=== PATIENT | male | born 1970 | race Two or more races ===

== ENCOUNTER 2017-10-04 14:04 | Emergency (ER) | payer OTHER ==
[~2017-10-04] VITALS: Ht 167.6 cm; Wt 113.4 kg
[~2017-10-04 14:04] MED LIST: ULTRACET PO
[2017-10-04] MEDS ORDERED: METFORMIN HCL500 MG PO (15:10)
== END 2017-10-04 16:12 | disposition home or self-care (01) ==
LOC: ER 14:04
DX: S90.861A Insect bite (nonvenomous), right foot, initial encounter (principal); W57.XXXA Bitten or stung by nonvenomous insect and other nonvenomous arthropods, initial encounter; Y93.89 Activity, other specified; Y92.89 Other specified places as the place of occurrence of the external cause; Y99.8 Other external cause status

== ENCOUNTER 2018-12-19 09:52 | Emergency (ER) | payer OTHER ==
[~2018-12-19] VITALS: Ht 172.7 cm; Wt 98.4 kg
[~2018-12-19 09:52] MED LIST changes: +METFORMIN HCL500 MG PO
== END 2018-12-19 11:51 | disposition home or self-care (01) ==
LOC: ER 09:52
DX: L02.212 Cutaneous abscess of back [any part, except buttock and flank] (principal)

== ENCOUNTER 2019-02-24 00:27 | Inpatient (IN) | payer OTHER ==
[~2019-02-24] VITALS: Ht 165.1 cm; Wt 98.4 kg
[2019-03-01] MEDS ORDERED: CEPHALEXIN500 M1 PO (10:06)
== END 2019-03-01 11:36 | disposition home or self-care (01) | DRG 571 ==
LOC: ER 00:27 → MEDJ 14:03 → SEC-K 14:03 → MEDJ 16:47
PROVIDERS: Specialist; ADMIT Internal Medicine
PROC: 0JB40ZZ Excision of Right Neck Subcutaneous Tissue and Fascia, Open Approach (ICD-10-PCS; principal; 2019-02-25 14:15)
DX: L03.221 Cellulitis of neck (principal); L02.212 Cutaneous abscess of back [any part, except buttock and flank]; B95.61 Methicillin susceptible Staphylococcus aureus infection as the cause of diseases classified elsewhere; E08.3219 Diabetes mellitus due to underlying condition with mild nonproliferative diabetic retinopathy with macular edema, unspecified eye; S80.862S Insect bite (nonvenomous), left lower leg, sequela; Z79.4 Long term (current) use of insulin